=== PATIENT | female | born 1985 | race Caucasian/White ===

== ENCOUNTER → 2022-09-28 | Outpatient (CLI) | payer OTHER, SELFPAY ==
[2022-09-28 16:44] LABS: Hemoglobin A1c 5.5 % (3.8-5.6)
[2022-09-28 17:11] LABS: Vitamin B12 495 pg/mL (211-911); Vitamin D,25 Hydroxy 18.8 ng/mL
[2022-09-28 17:17] LABS: CRP 7.12 mg/L (0.0-3.0); Free T3 2.6 pg/mL (2.18-3.98); T4 Free Direct 0.92 ng/dL (0.76-1.46); Thyroid Stim Hormone (TSH) 1.67 uIU/mL (0.358-3.74)
== END | disposition home or self-care (01) ==
PROVIDERS: PCP Student in an Organized Health Care Education/Training Program; Visit Provider Student in an Organized Health Care Education/Training Program
DX: Z00.00 Encounter for general adult medical examination without abnormal findings (principal)
CPT/HCPCS: 82306; 82607; 83036; 84439; 84443; 84481; 86140